=== PATIENT | female | born 1985 | race Two or more races ===

== ENCOUNTER 2018-11-11 13:34 | Emergency (ER) | payer BC ==
[~2018-11-11] VITALS: Ht 165.1 cm; Wt 93.4 kg
[2018-11-11 14:20] VITALS: Ht 165.1 cm; Wt 93.4 kg
[2018-11-11 15:31] LABS: BASOPHIL % 0.6 % (0-2)
[2018-11-11 15:32] LABS: PLATELET COUNT 434 x10^3mcL (130-400); RED CELL DISTRIBUTION WIDTH 17.1 % (11.5-14.5)
[2018-11-11 15:42] LABS: CALCIUM 8.7 mg/dL (8.5-10.1); CARBON DIOXIDE 29.1 mmol/L (21-32); CHLORIDE SERUM 101 mmol/L (98-107); CREATININE SERUM 0.8 mg/dL (0.6-1.0); GFR1 > 60 mL/min; GLUCOSE SERUM 83 mg/dL (74-106); POTASSIUM SERUM 3.6 mmol/L (3.5-5.1); SODIUM SERUM 138 mmol/L (136-145)
[2018-11-11 15:46] LABS: ALBUMIN 3.9 g/dL (3.4-5.0); ALKALINE PHOSPHATASE 104 U/L (46-116); ALT/SGPT 23 U/L (14-59); AST/SGOT 14 U/L (15-37); BILIRUBIN TOTAL 0.32 mg/dL (0.20-1.00); CHOLESTEROL 189 mg/dL (<200); LIPASE 166 IU/L (73-393); TRIGLYCERIDES 85 mg/dL (<150)
[2018-11-11 15:49] LABS: CHOLESTEROL/HDL RATIO 2.8; HDL CHOLESTEROL 68 mg/dL (40-60); TOTAL PROTEIN, SERUM 8.3 g/dL (6.4-8.2)
[2018-11-11 15:54] LABS: FREE T4 1.04 ng/dL (0.76-1.46); FREE THYROXINE INDEX 2.8 ug/dL (1.4-4.5); T4(THYROXINE) 8.3 ug/dL (4.7-13.3)
[2018-11-11 16:02] LABS: T3 TOTAL 1.04 ng/mL
[2018-11-11 16:43] LABS: UA SPECIFIC GRAVITY 1.015 (1.005-1.035); microscopic required? YES; urine erythrocyte TRACE (NEGATIVE)
[2018-11-11 16:53] LABS: AMPHETAMINE QUAL UR NONE DETECTED (See below)
[2018-11-11 21:09] VITALS: BP 159/115
== END 2018-11-11 21:09 | disposition home or self-care (01) ==
LOC: ED 13:34
PROVIDERS: Specialist
DX: T78.40XA Allergy, unspecified, initial encounter (principal); R03.0 Elevated blood-pressure reading, without diagnosis of hypertension; X58.XXXA Exposure to other specified factors, initial encounter; Z98.890 Other specified postprocedural states
CPT/HCPCS: 83880; 84439; J0360; J1200; J2930; J3490; J7030; Q0092